=== PATIENT | female | born 1945 | race Caucasian/White ===

== ENCOUNTER → 2017-04-20 | Outpatient (CLI) | payer BC | LOC: FIMAGING 11:04 | PROVIDERS: ATTEND Family Medicine | DX: M67.412 Ganglion, left shoulder (principal) ==

== ENCOUNTER → 2017-05-12 | Outpatient (CLI) | payer BC | LOC: FIMAGING 09:40 | PROVIDERS: ATTEND Family Medicine | DX: Z12.31 Encounter for screening mammogram for malignant neoplasm of breast (principal); Z80.3 Family history of malignant neoplasm of breast | CPT/HCPCS: G0202 ==

== ENCOUNTER → 2017-10-03 | Outpatient (CLI) | payer BC | LOC: FIMAGING 08:54 | PROVIDERS: ATTEND Obstetrics & Gynecology | DX: Z13.820 Encounter for screening for osteoporosis (principal); M85.80 Other specified disorders of bone density and structure, unspecified site ==

== ENCOUNTER → 2018-04-24 | Outpatient (CLI) | payer BC | LOC: FIMAGING 08:10 | PROVIDERS: ATTEND Obstetrics & Gynecology | DX: Z12.31 Encounter for screening mammogram for malignant neoplasm of breast (principal); Z80.3 Family history of malignant neoplasm of breast ==

== ENCOUNTER → 2018-04-27 | Outpatient (CLI) | payer BC | LOC: FIMAGING 09:21 | PROVIDERS: ATTEND Obstetrics & Gynecology | DX: R92.8 Other abnormal and inconclusive findings on diagnostic imaging of breast (principal) ==